=== PATIENT | female | born 1985 | race Caucasian/White ===

== ENCOUNTER 2017-01-17 15:07 | Emergency (ER) | payer OTHER ==
[~2017-01-17] VITALS: Ht 175.3 cm; Wt 103.9 kg
[~2017-01-17 15:07] MED LIST: HYDROCORTISONE30 G2 EXT; IBUPROFEN800 MG PO; NO MEDICATIONS; NORCO 10-325 TA1 TAB PO
== END 2017-01-17 15:45 | disposition left against medical advice (07) ==
LOC: CED 15:07
DX: Z53.21 Procedure and treatment not carried out due to patient leaving prior to being seen by health care provider (principal)
CPT/HCPCS: 84703